=== PATIENT | female | born 1950 | race Two or more races ===

== ENCOUNTER 2017-10-19 15:18 | Inpatient (IN) | payer MEDICARE, MEDICAID ==
[~2017-10-19] VITALS: Ht 149.9 cm; Wt 31.8 kg
[2017-10-19] MEDS ORDERED: SODIUM CHLORIDE 0.9% 1,000 ML IV ONE (18:17)
[2017-10-19] MEDS ORDERED: ONDANSETRON HCL 4MG/2ML INJ IV ONE (18:30)
[2017-10-19] MEDS ORDERED: LORAZEPAM 2MG/ML CPJ IV ONE (18:30)
[2017-10-19 19:08] LABS: CLARITY URINE CLEAR (CLEAR); COLOR URINE YELLOW (YELLOW); KETONES URINE NEGATIVE (NEGATIVE); LEUKOCYTE ESTERASE URINE 2+ (NEGATIVE); NITRITE URINE NEGATIVE (NEGATIVE); OCCULT BLOOD URINE 3+ (NEGATIVE); PH URINE 6.5 (4.5-8.0); PROTEIN URINE 1+ (NEGATIVE); SPECIFIC GRAVITY URINE 1.009 (1.005-1.030); UROBILINOGEN URINE 0.2 E.U./dL (0.2-1.0)
[2017-10-19 19:24] LABS: BASOPHILS % 0.1 % (0.0-2.0); HEMATOCRIT. 26.3 % (36.0-48.0); HEMOGLOBIN. 8.8 g/dL (12.0-16.0); LYMPHOCYTES % 9.9 % (20.0-50.0); MEAN CORPUSCULAR HEMOGLOBIN 30.1 pg (28.0-32.0); MEAN CORPUSCULAR VOLUME 90.4 fL (81.0-99.0); MEAN PLATELET VOLUME 6.8 fl (7.4-10.4); MONOCYTES % 8.6 % (2.0-8.0); NEUTROPHILS % 81.4 % (40.0-76.0); PLATELET 182 x1000/uL (130-400); RED CELL DISTRIBUTION WIDTH 16.7 % (11.6-14.6)
[2017-10-19 19:26] LABS: CHLORIDE 92 mEq/L (98-107); INR 1.2
[2017-10-19 19:27] LABS: *BARBITURATES SCREEN URINE NEGATIVE (NEGATIVE)
[2017-10-19 19:28] LABS: *BENZODIAZEPINES SCREEN URINE NEGATIVE (NEGATIVE); *COCAINE SCREEN URINE NEGATIVE (NEGATIVE); CANNABINOID URINE SCREEN NEGATIVE (NEGATIVE); METHADONE URINE SCREEN NEGATIVE (NEGATIVE); OPIATES URINE SCREEN NEGATIVE (NEGATIVE); PHENCYCLIDINE URINE SCREEN NEGATIVE (NEGATIVE)
[2017-10-19 19:30] LABS: *AMPHETAMINES SCREEN URINE NEGATIVE (NEGATIVE)
[2017-10-19 19:32] LABS: ETHANOL BLOOD < 10 mg/dL
[2017-10-19 19:34] LABS: AMMONIA 31 uMol/L (<32)
[2017-10-19] MEDS ORDERED: IPRATROPIUM/ALBUTEROL 0.5-3(2.5)MG/3ML NEB HHN ONE (20:45)
[2017-10-19] MEDS ORDERED: METHYLPREDNISOLONE SOD SUCC 125 MG/2 ML VIAL IV ONE (20:45)
[2017-10-19 22:01] LABS: BG BASE EXCESS -4.3 mmol/L (-2.0-2.0); BG CARBOXYHEMOGLOBIN 2.1 % (0.5-1.5); BG DEOXYHEMOGLOBIN 21.3 % (0.0-5.0); BG FRACTION INSPIRED OXYGEN 60; BG HCO3 ACT 21.9 mmol/L (22.0-26.0); BG METHEMOGLOBIN 0.2 % (0.0-1.5); BG OXYGEN SATURATION 78.2 % (92.0-98.5); BG OXYHEMOGLOBIN 76.4 % (94.0-97.0); BG PCO2 45.1 mmHg (35.0-45.0); BG PH 7.304 (7.350-7.450); BG PO2 50.7 mmHg (75.0-100.0); BG SAMPLE SITE RIGHT BRACHIAL
[2017-10-19] MEDS ORDERED: HYDROCODONE/ACETAMINOPHEN 5/325MG TABLET PO PRN (23:15)
[2017-10-19] MEDS ORDERED: MAGNESIUM/ALUMINUM HYDROXIDE/SIMETHICONE 30ML UDC PO PRN (23:15)
[2017-10-19] MEDS ORDERED: CLONIDINE 0.1MG TABLET PO PRN (23:15)
[2017-10-19] MEDS ORDERED: ACETAMINOPHEN 325MG TABLET PO PRN (23:15)
[2017-10-19] MEDS ORDERED: ONDANSETRON HCL 4MG/2ML INJ IV PRN (23:15)
[2017-10-19] MEDS ORDERED: DOCUSATE SODIUM 100MG CAPSULE PO PRN (23:15)
[2017-10-19] MEDS ORDERED: LORAZEPAM 2MG/ML CPJ IV PRN (23:15)
[2017-10-20] VITALS (18 sets, daily range): BP systolic 129–162; BP diastolic 67–96
[2017-10-20] MEDS ORDERED: SODIUM CHLORIDE 0.9% 1,000 ML IV SCH (00:47)
[2017-10-20] MEDS ORDERED: ONDANSETRON 4MG ODT PO PRN (01:30)
[2017-10-20] MEDS ORDERED: MVI, ADULT NO.1 10 ML, FOLIC ACID 1 MG, THIAMINE HCL 100 MG in SODIUM CHLORIDE 0.9% 1,0... IV SCH ×4 (02:00)
[2017-10-20] MEDS ORDERED: DEXTROSE 50% WATER 50ML SYRINGE IV PRN (02:00)
[2017-10-20] MEDS ORDERED: MAGNESIUM 2 G PREMIX 50 ML IV ONE (03:30)
[2017-10-20] MEDS ORDERED: MAGNESIUM SULFATE 2 GM in DEXTROSE 5% WATER 50 ML IV SCH (05:00)
[2017-10-20] MEDS: METHYLPREDNISOLONE SOD SUCC 40 MG/ML VIAL IV SCH ×3 (05:23→21:57)
[2017-10-20] MEDS: CHLORDIAZEPOXIDE 25MG CAPSULE PO SCH ×3 (05:27→21:54)
[2017-10-20] MEDS: BLOOD SUGAR DIAGNOSTIC STRIP TEST SCH ×4 (05:54→21:52)
[2017-10-20 06:22] LABS: CHLORIDE 98 mEq/L (98-107)
[2017-10-20 06:24] LABS: BASOPHILS % 0.2 % (0.0-2.0); HEMATOCRIT. 27.3 % (36.0-48.0); HEMOGLOBIN. 9.1 g/dL (12.0-16.0); LYMPHOCYTES % 8.7 % (20.0-50.0); MEAN CORPUSCULAR HEMOGLOBIN 30.7 pg (28.0-32.0); MEAN CORPUSCULAR VOLUME 91.6 fL (81.0-99.0); MEAN PLATELET VOLUME 6.8 fl (7.4-10.4); MONOCYTES % 3.1 % (2.0-8.0); PLATELET 156 x1000/uL (130-400); RED BLOOD CELL COUNT 2.98 mill/uL (4.2-5.4); RED CELL DISTRIBUTION WIDTH 16.4 % (11.6-14.6)
[2017-10-20 06:33] LABS: LDL CHOLESTEROL 57 mg/dL (5-100)
[2017-10-20 06:35] LABS: CREATINE KINASE 146 IU/L (26-192); HDL CHOLESTEROL 86 mg/dL (40-59)
[2017-10-20 06:39] LABS: CREATINE KINASE MB FRACTION 8.1 ng/mL (0.5-3.6)
[2017-10-20 06:39] LABS: BG BASE EXCESS -5.7 mmol/L (-2.0-2.0); BG BILEVEL POS AIRWAY PRESSURE 15/5; BG DEOXYHEMOGLOBIN 0.2 % (0.0-5.0); BG FRACTION INSPIRED OXYGEN 100; BG HCO3 ACT 20.5 mmol/L (22.0-26.0); BG METHEMOGLOBIN 0.3 % (0.0-1.5); BG OXYGEN SATURATION 99.8 % (92.0-98.5); BG OXYHEMOGLOBIN 98.5 % (94.0-97.0); BG PCO2 42.9 mmHg (35.0-45.0); BG PH 7.297 (7.350-7.450); BG PO2 407.1 mmHg (75.0-100.0); BG TOTAL HEMOGLOBIN 11.4 g/dL (12.0-18.0); BG VENT MODE MASK - BIPAP; BG VENT RATE 16 set
[2017-10-20] MEDS: INSULIN LISPRO 100 UNITS/ML SUBCUT SCH ×4 (07:20→21:00)
[2017-10-20] MEDS: BUDESONIDE 0.5MG/2ML NEB HHN SCH ×2 (07:23→21:04)
[2017-10-20 07:26] LABS: BG BASE EXCESS -1.2 mmol/L (-2.0-2.0); BG BILEVEL POS AIRWAY PRESSURE 15/5; BG CARBOXYHEMOGLOBIN 0.3 % (0.5-1.5); BG DEOXYHEMOGLOBIN 3.1 % (0.0-5.0); BG HCO3 ACT 24.1 mmol/L (22.0-26.0); BG METHEMOGLOBIN 0.1 % (0.0-1.5); BG OXYGEN SATURATION 96.9 % (92.0-98.5); BG OXYHEMOGLOBIN 96.5 % (94.0-97.0); BG PCO2 42.4 mmHg (35.0-45.0); BG PH 7.372 (7.350-7.450); BG PO2 97.1 mmHg (75.0-100.0); BG SAMPLE SITE RIGHT BRACHIAL; BG TOTAL HEMOGLOBIN 9.8 g/dL (12.0-18.0); BG VENT MODE MASK - BIPAP; BG VENT RATE 16 set
[2017-10-20 09:54] LABS: BG SAMPLE SITE RIGHT BRACHIAL
[2017-10-20 11:23] LABS: HEPATITIS B SURFACE ANTIGEN NEGATIVE
[2017-10-20 11:51] LABS: HEPATITIS B CORE AB IGM NEGATIVE
[2017-10-20 11:52] LABS: HEPATITIS A AB IGM NEGATIVE (NEGATIVE)
[2017-10-20 18:43] LABS: FOLIC ACID (FOLATE) SERUM >20 ng/mL ng/mL (>5.38)
[2017-10-20 18:48] LABS: FERRITIN 77 ng/mL (10-291)
[2017-10-20 18:53] LABS: VITAMIN B12 SERUM 986 pg/mL (211-911)
[2017-10-20] MEDS: PROPRANOLOL HCL 10MG TABLET PO SCH (21:54)
[2017-10-20] MEDS: AMLODIPINE 5MG TABLET PO SCH (21:54)
[2017-10-21] VITALS (13 sets, daily range): BP systolic 107–158; BP diastolic 63–96
[2017-10-21] MEDS: CHLORDIAZEPOXIDE 25MG CAPSULE PO SCH ×3 (05:35→21:47)
[2017-10-21] MEDS: METHYLPREDNISOLONE SOD SUCC 40 MG/ML VIAL IV SCH (05:36)
[2017-10-21] MEDS: BLOOD SUGAR DIAGNOSTIC STRIP TEST SCH ×4 (05:36→21:44)
[2017-10-21 07:19] LABS: HEMATOCRIT. 30.2 % (36.0-48.0); LYMPHOCYTES % 7.8 % (20.0-50.0); MEAN CORPUSCULAR HEMOGLOBIN 30.6 pg (28.0-32.0); MEAN CORPUSCULAR VOLUME 92.4 fL (81.0-99.0); MEAN PLATELET VOLUME 7.3 fl (7.4-10.4); MONOCYTES % 4.6 % (2.0-8.0); NEUTROPHILS % 87.6 % (40.0-76.0); PLATELET 150 x1000/uL (130-400); RED BLOOD CELL COUNT 3.27 mill/uL (4.2-5.4); RED CELL DISTRIBUTION WIDTH 16.7 % (11.6-14.6)
[2017-10-21] MEDS: INSULIN LISPRO 100 UNITS/ML SUBCUT SCH ×4 (07:20→21:00)
[2017-10-21 07:32] LABS: PHOSPHORUS 2.2 mg/dL (2.5-4.9)
[2017-10-21] MEDS: THIAMINE HCL 100MG TABLET PO SCH (08:11)
[2017-10-21] MEDS: FOLIC ACID 1MG TABLET PO SCH (08:11)
[2017-10-21] MEDS: MULTIVITAMINS,THER W-MINERALS TABLET PO SCH (08:11)
[2017-10-21] MEDS: PROPRANOLOL HCL 10MG TABLET PO SCH ×2 (08:12→20:41)
[2017-10-21] MEDS: AMLODIPINE 5MG TABLET PO SCH ×2 (08:12→20:41)
[2017-10-21 09:06] LABS: HIV SCREEN 4G Non Reactive (Non Reactive)
[2017-10-21] MEDS: IPRATROPIUM/ALBUTEROL 0.5-3(2.5)MG/3ML NEB INH PRN (10:35)
[2017-10-21] MEDS: BUDESONIDE 0.5MG/2ML NEB HHN SCH ×2 (10:35→20:06)
[2017-10-22] VITALS (12 sets, daily range): BP systolic 114–165; BP diastolic 58–110
[2017-10-22] MEDS: CHLORDIAZEPOXIDE 25MG CAPSULE PO SCH ×3 (05:48→21:05)
[2017-10-22] MEDS: BLOOD SUGAR DIAGNOSTIC STRIP TEST SCH ×4 (06:45→21:00)
[2017-10-22] MEDS: INSULIN LISPRO 100 UNITS/ML SUBCUT SCH ×4 (06:46→21:00)
[2017-10-22 07:57] LABS: BASOPHILS % 0.1 % (0.0-2.0); HEMATOCRIT. 32.7 % (36.0-48.0); HEMOGLOBIN. 10.7 g/dL (12.0-16.0); LYMPHOCYTES % 14.8 % (20.0-50.0); MEAN CORPUSCULAR HEMOGLOBIN 30.2 pg (28.0-32.0); MEAN CORPUSCULAR VOLUME 92.3 fL (81.0-99.0); MEAN PLATELET VOLUME 7.3 fl (7.4-10.4); MONOCYTES % 4.6 % (2.0-8.0); NEUTROPHILS % 80.5 % (40.0-76.0); PLATELET 124 x1000/uL (130-400); RED BLOOD CELL COUNT 3.54 mill/uL (4.2-5.4); RED CELL DISTRIBUTION WIDTH 16.2 % (11.6-14.6)
[2017-10-22] MEDS: THIAMINE HCL 100MG TABLET PO SCH (08:16)
[2017-10-22] MEDS: MULTIVITAMINS,THER W-MINERALS TABLET PO SCH (08:16)
[2017-10-22] MEDS: AMLODIPINE 5MG TABLET PO SCH ×2 (08:16→21:05)
[2017-10-22] MEDS: FOLIC ACID 1MG TABLET PO SCH (08:16)
[2017-10-22] MEDS: PROPRANOLOL HCL 10MG TABLET PO SCH ×2 (08:16→21:05)
[2017-10-22] MEDS: METHYLPREDNISOLONE SOD SUCC 40 MG/ML VIAL IV SCH (08:17)
[2017-10-22] MEDS: VANCOMYCIN HCL 1000 MG/20 ML ORAL PO SCH ×3 (09:00→17:11)
[2017-10-22] MEDS: BUDESONIDE 0.5MG/2ML NEB HHN SCH (10:39)
[2017-10-22] MEDS: IPRATROPIUM/ALBUTEROL 0.5-3(2.5)MG/3ML NEB INH PRN (10:39)
[2017-10-23] VITALS (12 sets, daily range): BP systolic 82–158; BP diastolic 23–88
[2017-10-23] MEDS: VANCOMYCIN HCL 1000 MG/20 ML ORAL PO SCH ×5 (00:46→23:10)
[2017-10-23] MEDS: BUDESONIDE 0.5MG/2ML NEB HHN SCH ×2 (01:17→08:21)
[2017-10-23] MEDS ORDERED: CLON1TAB MT (05:52)
[2017-10-23] MEDS: CHLORDIAZEPOXIDE 25MG CAPSULE PO SCH ×3 (06:18→21:27)
[2017-10-23] MEDS: BLOOD SUGAR DIAGNOSTIC STRIP TEST SCH ×4 (06:50→21:27)
[2017-10-23 07:00] LABS: BASOPHILS % 0.1 % (0.0-2.0); EOSINOPHILS % 0.3 % (0.0-5.0); HEMATOCRIT. 30.8 % (36.0-48.0); HEMOGLOBIN. 10.3 g/dL (12.0-16.0); LYMPHOCYTES % 22.9 % (20.0-50.0); MEAN CORPUSCULAR HEMOGLOBIN 30.5 pg (28.0-32.0); MEAN CORPUSCULAR VOLUME 91.1 fL (81.0-99.0); MONOCYTES % 6.6 % (2.0-8.0); NEUTROPHILS % 70.1 % (40.0-76.0); PLATELET 100 x1000/uL (130-400); RED BLOOD CELL COUNT 3.38 mill/uL (4.2-5.4); RED CELL DISTRIBUTION WIDTH 16.3 % (11.6-14.6)
[2017-10-23] MEDS: INSULIN LISPRO 100 UNITS/ML SUBCUT SCH ×4 (07:20→21:52)
[2017-10-23] MEDS: MULTIVITAMINS,THER W-MINERALS TABLET PO SCH (08:44)
[2017-10-23] MEDS: METHYLPREDNISOLONE SOD SUCC 40 MG/ML VIAL IV SCH (08:44)
[2017-10-23] MEDS: THIAMINE HCL 100MG TABLET PO SCH (08:44)
[2017-10-23] MEDS: FOLIC ACID 1MG TABLET PO SCH (08:44)
[2017-10-23] MEDS: PROPRANOLOL HCL 10MG TABLET PO SCH ×2 (08:51→21:26)
[2017-10-23] MEDS: AMLODIPINE 5MG TABLET PO SCH ×2 (08:51→21:27)
[2017-10-23] MEDS: LACTOBACILLUS GG CAPSULE PO SCH (14:48)
[2017-10-24] VITALS (8 sets, daily range): BP systolic 109–141; BP diastolic 57–82
[2017-10-24] MEDS: VANCOMYCIN HCL 1000 MG/20 ML ORAL PO SCH ×2 (05:22→12:00)
[2017-10-24] MEDS: BLOOD SUGAR DIAGNOSTIC STRIP TEST SCH ×2 (05:22→12:40)
[2017-10-24] MEDS: CHLORDIAZEPOXIDE 25MG CAPSULE PO SCH ×2 (05:22→14:13)
[2017-10-24] MEDS: INSULIN LISPRO 100 UNITS/ML SUBCUT SCH ×2 (05:29→14:14)
[2017-10-24] MEDS: PROPRANOLOL HCL 10MG TABLET PO SCH (08:04)
[2017-10-24] MEDS: MULTIVITAMINS,THER W-MINERALS TABLET PO SCH (08:04)
[2017-10-24] MEDS: LACTOBACILLUS GG CAPSULE PO SCH (08:04)
[2017-10-24] MEDS: FOLIC ACID 1MG TABLET PO SCH (08:04)
[2017-10-24] MEDS: THIAMINE HCL 100MG TABLET PO SCH (08:05)
[2017-10-24] MEDS: AMLODIPINE 5MG TABLET PO SCH (08:05)
[2017-10-24] MEDS ORDERED: PREDNISONE 20MG TABLET PO SCH (09:00)
[2017-10-24] MEDS ORDERED: FOLI-43 PO (09:49)
[2017-10-24] MEDS ORDERED: PROP10TA10 PO (09:49)
[2017-10-24] MEDS ORDERED: THIA100T72 PO (09:49)
[2017-10-24] MEDS ORDERED: LACT1CAP77 PO (09:49)
[2017-10-24] MEDS ORDERED: VANJ5 PO (09:49)
[2017-10-24] MEDS ORDERED: AMLO5TAB88 PO (09:49)
[2017-10-24] MEDS ORDERED: L25 PO (09:49)
== END 2017-10-24 17:50 | disposition home or self-care (01) | DRG 775 ==
LOC: ER 15:45 → 3WST 22:26 → ENRESERV 22:57 → 7WST 10-24 09:53
PROVIDERS: ADMIT Internal Medicine; ATTEND Internal Medicine
PROC: 5A09357 Assistance with Respiratory Ventilation, Less than 24 Consecutive Hours, Continuous Positive Airway Pressure (ICD-10-PCS; principal; 2017-10-19)
DX: F10.121 Alcohol abuse with intoxication delirium (principal); J96.00 Acute respiratory failure, unspecified whether with hypoxia or hypercapnia; A41.9 Sepsis, unspecified organism; N17.9 Acute kidney failure, unspecified; E44.0 Moderate protein-calorie malnutrition; A04.72 Enterocolitis due to Clostridium difficile, not specified as recurrent; D64.9 Anemia, unspecified; E11.9 Type 2 diabetes mellitus without complications; E87.1 Hypo-osmolality and hyponatremia; J44.1 Chronic obstructive pulmonary disease with (acute) exacerbation; E87.70 Fluid overload, unspecified; I50.40 Unspecified combined systolic (congestive) and diastolic (congestive) heart failure; E88.09 Other disorders of plasma-protein metabolism, not elsewhere classified; E05.80 Other thyrotoxicosis without thyrotoxic crisis or storm; F17.210 Nicotine dependence, cigarettes, uncomplicated; R74.0 Nonspecific elevation of levels of transaminase and lactic acid dehydrogenase [LDH]; I10 Essential (primary) hypertension; N39.0 Urinary tract infection, site not specified; Z90.710 Acquired absence of both cervix and uterus; Z68.1 Body mass index [BMI] 19.9 or less, adult; Z90.49 Acquired absence of other specified parts of digestive tract
CPT/HCPCS: 36415; 36600; 71045; 76700; 80048; 80053; 80061; 80305; 81003; 82140; 82270; 82375; 82550; 82553; 82607; 82728; 82746; 82805; 82962; 83735; 83880; 83930; 84100; 84439; 84443; 84480; 84484; 85025; 85610; 86705; 86709; 86803; 87015; 87045; 87340; 87389; 87427; 87449; 87493; 93005; 93306; 93970; 94640; 94660; 96361; 96374; 96375; 97116; 97162; 97530; 99291; A6261; G0482; J1815; J2060; J2405; J2920; J2930; J3370; J3411; J3475; J3490; J7030; J7050; J7060; J7512; J7620; J7626